=== PATIENT | female | born 1980 | race Caucasian/White ===

== ENCOUNTER 2017-11-28 18:47 | Emergency (ER) | payer MEDICAID ==
[~2017-11-28] VITALS: Ht 160 cm; Wt 62.6 kg
[2017-11-28 19:32] VITALS: BP 111/77; Ht 160 cm; Wt 62.6 kg
== END 2017-11-29 00:16 | disposition left against medical advice (07) ==
LOC: ED 18:47
DX: Z53.21 Procedure and treatment not carried out due to patient leaving prior to being seen by health care provider (principal)

== ENCOUNTER 2018-10-15 15:03 | Emergency (ER) | payer MEDICAID ==
[~2018-10-15] VITALS: Ht 147.3 cm; Wt 61.2 kg
[2018-10-15 15:08] VITALS: Ht 147.3 cm; Wt 61.2 kg
[2018-10-15 17:17] VITALS: BP 93/63
== END 2018-10-15 17:17 | disposition home or self-care (01) ==
LOC: ED 15:03
DX: J20.9 Acute bronchitis, unspecified (principal); M79.10 Myalgia, unspecified site; Z98.890 Other specified postprocedural states
CPT/HCPCS: 87804; J1885; J3010; Q0162

== ENCOUNTER 2019-09-29 16:10 | Emergency (ER) | payer MEDICAID ==
[2019-09-29 18:54] LABS: BASOPHIL % 0.2 % (0-2); PLATELET COUNT 165 x10^3mcL (130-400)
[2019-09-29 19:02] LABS: CARBON DIOXIDE 26.2 mmol/L (21-32); CHLORIDE SERUM 106 mmol/L (98-107); CREATININE SERUM 0.7 mg/dL (0.6-1.0); GFR1 > 60 mL/min; GLUCOSE SERUM 87 mg/dL (74-106); POTASSIUM SERUM 3.6 mmol/L (3.5-5.1); SODIUM SERUM 141 mmol/L (136-145)
[2019-09-29 19:07] LABS: ALKALINE PHOSPHATASE 74 U/L (46-116); ALT/SGPT 18 U/L (14-59); AST/SGOT 14 U/L (15-37); BILIRUBIN TOTAL 0.2 mg/dL (0.20-1.00); TOTAL PROTEIN, SERUM 6.9 g/dL (6.4-8.2)
[2019-09-29 19:12] LABS: ALBUMIN 3.3 g/dL (3.4-5.0)
[2019-09-29 20:23] VITALS: BP 111/75
== END 2019-09-29 20:23 | disposition home or self-care (01) ==
LOC: ED 16:10
PROVIDERS: Emergency Medicine
DX: J40 Bronchitis, not specified as acute or chronic (principal); B34.9 Viral infection, unspecified; Z90.89 Acquired absence of other organs
CPT/HCPCS: J1885; Q0092

== ENCOUNTER 2020-02-01 08:54 | Emergency (ER) | payer MEDICAID ==
[~2020-02-01] VITALS: Ht 149.9 cm; Wt 65.3 kg
[2020-02-01 08:59] VITALS: Ht 149.9 cm; Wt 65.3 kg
[2020-02-01 10:19] VITALS: BP 118/73
== END 2020-02-01 10:19 | disposition home or self-care (01) ==
LOC: ED 08:54
DX: J06.9 Acute upper respiratory infection, unspecified (principal); H61.23 Impacted cerumen, bilateral; Z98.890 Other specified postprocedural states

== ENCOUNTER 2020-06-30 13:43 | Emergency (ER) | payer MEDICAID, SELFPAY ==
[~2020-06-30] VITALS: Ht 160 cm; Wt 70.3 kg
[2020-06-30 14:13] VITALS: Ht 160 cm; Wt 70.3 kg
[2020-06-30 15:25] VITALS: BP 102/69
== END 2020-06-30 15:25 | disposition home or self-care (01) ==
LOC: ED 13:43
DX: J03.90 Acute tonsillitis, unspecified (principal); Z20.828 Contact with and (suspected) exposure to other viral communicable diseases
CPT/HCPCS: U0003-CS